=== PATIENT | male | born 1990 | race Hispanic/Latino ===

== ENCOUNTER 2018-11-25 10:57 | Emergency (ER) | payer OTHER ==
[2018-11-25] MEDS ORDERED: ACETAMINOPHEN 325 MG TAB ONE (11:25)
[2018-11-25] MEDS ORDERED: IBUPROFEN 600 MG TABLET ONE (11:26)
[2018-11-25 11:45] LABS: RAPID GROUP A STREP NEGATIVE (NEGATIVE)
== END 2018-11-25 12:25 | disposition home or self-care (01) ==
LOC: EDH 10:57
DX: J02.9 Acute pharyngitis, unspecified (principal)
CPT/HCPCS: 87804; 87880